=== PATIENT | male | born 1990 | race Caucasian/White ===

== ENCOUNTER 2017-07-19 18:52 | Emergency (ER) | payer SELFPAY ==
[~2017-07-19] VITALS: Ht 170.2 cm; Wt 140.6 kg
--- NOTE | 2017-07-19 18:52 | NUR ---
Patient was BIBA and taken to [facility].
[2017-07-19 18:53] VITALS: BP 140/65
--- NOTE | 2017-07-19 18:56 | NUR ---
ARRIVED VIA [facility] FOR ANXIETY GIVEN 4 81 MG ASPIRIN IN THE FIELD.
--- NOTE | 2017-07-19 19:15 | NUR ---
MOVED TO ER BED 7
--- NOTE | 2017-07-19 19:29 | NUR ---
BIBA, PT STATES HE SMOKED MARIJUANA AND DRANK A RED BULL AND WASNT FEELING WELL. HAS HX OF ANXIETY . PT DENIES N/V/D; SKIN IS PINK/WARM/DRY; AAOX4 WITH EVEN AND STEADY GAIT; LUNGS CLEAR BL; HR EVEN AND REGULAR; PT DENIES ANY FEVER, CP, SOB, OR COUGH AT THIS TIME; PATIENT STATES PAIN OF 0/10 AT THIS TIME; VSS; PATIENT POSITIONED FOR COMFORT; HOB ELEVATED; BEDRAILS UP X2; BED DOWN. ER MD MADE AWARE OF PT STATUS.
--- NOTE | 2017-07-19 19:40 | NUR ---
Patient discharged with v/s stable. Written and verbal after care instructions given and explained. Patient verbalized understanding. Ambulatory with steady gait. All questions addressed prior to discharge. Advised to follow up with PMD.
[2017-07-19 19:41] VITALS: BP 132/69
== END 2017-07-19 19:40 | disposition home or self-care (01) ==
LOC: MED 18:52 → EDBD 18:52 → MED 19:40
DX: F12.10 Cannabis abuse, uncomplicated (principal); I10 Essential (primary) hypertension